=== PATIENT | female | born 1940 | race Caucasian/White ===

== ENCOUNTER 2019-03-31 09:58 | Emergency (ER) | payer MEDICARE, MEDICAID ==
[2019-03-31 10:17] VITALS: BP 154/77; PULSE 81
--- NOTE | 2019-03-31 10:54 | EDM.PDOC ---
ED HPI GENERAL MEDICAL PROBLEM - General Chief Complaint: Head Injury Stated Complaint: FALL 6 MONTHS AGO NOW HAVING HEADACHES Time Seen by Provider: 03/31/19 10:18 Source of Information: Reports: Patient, RN Notes Reviewed - History of Present Illness INITIAL COMMENTS - FREE TEXT/NARRATIVE: 78-year-old lady comes in with headaches that started several months ago after a fall and had been worsening in frequency and severity over the past 1-2 months. She states it comes and goes, readily relieved by Aleve but when that wears off the headache often comes back superior aspect of her head had no nausea or vomiting with this. Otherwise been recently ill. She does have some occasional mild balance difficulty but that is chronic. Does have COPD, wears oxygen chronically. No chest pain cough , fever, chills or difficulty breathing. Left Head Pain Score (Numeric/FACES): 1 - Related Data Allergies Allergy/AdvReac Type Severity Reaction Status Date / Time tiotropium bromide Allergy Burning Verified 03/31/19 10:18 [From Spiriva with HandiHaler] tizanidine Allergy Rash Verified 03/31/19 10:19 pioglitazone HCl [From Actos] AdvReac Nausea Verified 03/31/19 10:18 Home Meds: Home Meds Losartan/Hydrochlorothiazide [Losartan-HCTZ 100-25 MG] 1 tab PO DAILY 08/29/15 [ History] Omeprazole 40 mg PO DAILY 08/29/15 [History] Oxybutynin [Oxybutynin ER] 5 mg PO DAILY 08/29/15 [History] Sertraline [Zoloft] 25 mg PO DAILY 08/29/15 [History] Simvastatin [Zocor] 20 mg PO BEDTIME 08/29/15 [History] acetaZOLAMIDE [Acetazolamide] 250 mg PO ASDIRECTED 08/29/15 [History] metFORMIN [Glucophage] 850 mg PO BIDMEALS 08/29/15 [History] traMADol [Ultram] 50 mg PO Q8H 08/29/15 [History] Polyethylene Glycol 3350 [MiraLAX] 17 gm PO DAILY #14 packet 08/30/15 [Rx] oxyCODONE HCl/Acetaminophen [Percocet 5-325 mg Tablet] 1 - 2 each PO Q4H PRN #5 tablet 08/30/15 [Rx] predniSONE [Prednisone] 20 mg PO 6XDAY #18 tablet 08/30/15 [Rx] Past Medical History Cardiovascular History: Reports: High Cholesterol, Hypertension Respiratory History: Reports: Asthma Gastrointestinal History: Reports: Gastritis, GERD [employer]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: Endocrine/Metabolic History: Reports: Diabetes, Type II - Past Surgical History Female Surgical History: Reports: Other (See Below) Social & Family History - Tobacco Use Smoking Status *Q: Never Smoker Second Hand Smoke Exposure: No - Caffeine Use Caffeine Use: Reports: Coffee - Recreational Drug Use Recreational Drug Use: No - Living Situation & Occupation Living situation: Reports: Occupation: Retired ED ROS GENERAL - Review of Systems Review Of Systems: See Below HEENT: Reports: No Symptoms Respiratory: Reports: No Symptoms, Shortness of Breath Cardiovascular: Reports: No Symptoms GI/Abdominal: Reports: No Symptoms, Abdominal Pain. Denies: Nausea, Vomiting Musculoskeletal: Reports: No Symptoms Skin: Reports: No Symptoms Neurological: Reports: Dizziness (mild, chronic). Denies: Numbness, Tingling, Trouble Speaking, Difficulty Walking, Weakness ED EXAM, HEAD INJURY - Physical Exam Exam: See Below General Appearance: Alert, No Apparent Distress Head: Atraumatic. No: Scalp Swelling, Scalp Hematoma, Scalp Tenderness, Facial Swelling Ears: Normal External Exam Nose: Normal Inspection Throat/Mouth: Normal Inspection, Normal Oropharynx Neck: Non-Tender Respiratory: No Respiratory Distress, Lungs Clear, Normal Breath Sounds Cardiovascular: Regular Rate, Rhythm GI/Abdominal Exam: Non-Tender Extremities: Normal Inspection, Normal Range of Motion. No: Pedal Edema, Leg Pain Neurologic: No Motor/Sensory Deficits, Oriented x 3, Other (For mild ataxia with [id number] testing okay with that and no difference one side to the other) Skin: Normal Color, Warm/Dry Course - Vital Signs Last Recorded V/S: Last Vital Signs Temp 97.5 F 03/31/19 10:17 Pulse 81 03/31/19 10:17 Resp 15 03/31/19 10:17 BP 154/77 H 03/31/19 10:17 Pulse Ox 96 03/31/19 10:17 - Re-Assessments/Exams Free Text/Narrative Re-Assessment/Exam: 03/31/19 11:[address] looks good, discharge instr. as documented. Departure - Departure Time of Disposition: 12:52 Disposition: Home, Self-Care 01 Condition: Fair Clinical Impression: Headache - Discharge Information Instructions: General Headache Without Cause, [id number] Referrals: PCP,Not In Area [Primary Care Provider] - Forms: ED Department Discharge Additional Instructions: Tylenol 500 mg 2-3 times daily as needed, alternate ice packs and heat to scalp as needed. You may take occasional advil if needed for headache not relieved by tylenol. See your medical provider in [facility] in about 2 to 3 weeks for follow up, call for appointment. Sepsis Event Note - Evaluation Sepsis Screening Result: No Definite Risk - Focused Exam Date Exam was Performed: 04/01/19 Time Exam was Performed: 07:21
--- NOTE | 2019-03-31 12:32 | CT ---
Head CT Technique: Multiple axial sections through the brain were obtained. Intravenous contrast was not utilized. Comparison: No prior intracranial imaging is available. Findings: Ventricles along with basal cisterns and sulci over the convexities are mildly prominent. Minimal diminished density is noted within portions of periventricular white matter which is compatible with small vessel ischemic demyelination change. No other abnormal parenchymal densities are seen. No evidence of intracranial hemorrhage. No midline shift or mass effect is seen. Atherosclerotic calcification is seen within the vertebral vessels and within the carotid siphon. Bone window settings were reviewed which show no acute calvarial abnormality. Mastoid sinuses are clear. Visualized paranasal sinuses show nothing acute. Impression: 1. Mild senescent changes as noted above. 2. Nothing acute is appreciated on noncontrast head CT exam. Diagnostic code #2 This report was dictated in [place] Standard Time
== END 2019-03-31 13:38 | disposition home or self-care (01) ==
LOC: JD.ED 09:58
DX: R51 Headache (principal); I10 Essential (primary) hypertension; E11.9 Type 2 diabetes mellitus without complications; Z88.8 Allergy status to other drugs, medicaments and biological substances; Z79.899 Other long term (current) drug therapy; Z79.84 Long term (current) use of oral hypoglycemic drugs
CPT/HCPCS: 70450; 70450-26; 99284-25